=== PATIENT | male | born 1950 | race Caucasian/White ===

== ENCOUNTER 2020-01-22 05:20 | Emergency (ER) | payer OTHER, SELFPAY ==
[2020-01-22 05:22] VITALS: BP 174/90; PULSE 88; RESP 17; TEMP 36.1; O2SAT 100
--- NOTE | 2020-01-22 05:33 | ECG_ITS ---
Measurements Intervals [place] Rate: 84 P: 66 OK: 183 QRS: -5 QRSD: 145 T: 85 QT: 377 QTc: 448 Interpretive Statements SINUS RHYTHM LEFT BUNDLE BRANCH BLOCK ABNORMAL ECG Electronically Signed On 01-22-2020 6:50:54 CDT by Hernesto Oswald D.O.
[2020-01-22 05:58] LABS: Basophils Percent Auto 0.5 % (0.2-1.2); Eosinophils Absolute Auto 0.1 K/mm3 (0-0.3); Eosinophils Percent Auto 2.5 % (0-4.4); Hematocrit 42.7 % (42.0-52.0); Hemoglobin 14.9 g/dL (14.0-18.0); Immature Granulocyte Absolute 0.03 K/mm3 (0.00-0.031); Immature Granulocyte Percent A 0.5 % (0-0.5); Lymphocytes Absolute Auto 1.84 K/mm3 (0.9-3.2); Lymphocytes Percent Auto 32.6 % (18.3-44.2); Mean Corpuscular HGB Conc 34.9 g/dl (32-36); Mean Corpuscular Volume 85.9 fl (80-100); Mean Platelet Volume 8.4 fl (7.4-10.4); Monocytes Absolute Auto 0.4 K/mm3 (0.1-0.6); Monocytes Percent Auto 7.6 % (2.6-8.5); Neutrophils Absolute Auto 3.2 K/mm3 (1.3-6.7); Neutrophils Percent Auto 56.3 % (45.5-73.1); Platelet Count Result 139 k/mm3 (150-375); Red Blood Count 4.97 M/mm3 (4.6-6.20); Red Cell Distribution Width 12.4 % (11.5-14.5); White Blood Count 5.7 K/mm3 (4.5-10.0)
[2020-01-22 06:00] VITALS: BP 172/85; PULSE 81; RESP 18; O2SAT 100
[2020-01-22 06:07] LABS: Prothrombin Time 12.5 Seconds (11.1-14.7)
[2020-01-22 06:08] LABS: Partial Thromboplastin Time 30.6 SECONDS (22.3-36.8)
--- NOTE | 2020-01-22 06:08 | ED.ARRPALP ---
HPI - Arrhythmia/Palpitations General Chief Complaint: Arrhythmia/Palpitations Stated Complaint: Rapid heart beat Time Seen by Provider: 01/22/20 05:32 History of Present Illness HPI narrative: Patient is a 69-year-old male who presents ER with elevated blood pressures and concerns of palpitations. Patient was found to have elevated blood pressures on a physical exam couple weeks ago. Systolic blood pressure was running in the 150s. He has been going through a lot of stress at home as his is sick and he also has a stressful job. He has been trying to manage best he can but reports things have been more tense recently. He has been attempting meditation to control his blood pressure which he thinks is helpful. Over the last couple days however he has been feeling his heart beat harder and is concerned this may represent something more serious. He is not having chest pain or pressure. He is not short of breath with exertion. He has not been on any medication outside of his lisinopril 20 mg a has been taking for years in terms of blood pressure management. Related Data Home Medications Medication Instructions Recorded Confirmed ipratropium bromide 0.03 % nasal 2 spray NASAL TID 04/01/19 spray sildenafil (pulm.hypertension) 20 20 mg PO TID 04/01/19 mg tablet cholecalciferol (vitamin D3) 125 125 mcg PO DAILY 12/31/19 mcg (5,000 unit) capsule cyanocobalamin (B12)-cobamamide lozenge SUBLINGUAL 12/31/19 5,000 mcg-100 mcg sublingual lozenge famotidine 20 mg tablet 20 mg PO BID tablet 12/31/19 jkqviyeswzxx-umqqnadu-tkvzbu 1 tablet PO DAILY 12/31/19 omega-3 fatty acids 1,000 mg 1,000 mg PO DAILY 12/31/19 capsule Allergies Allergy/AdvReac Type Severity Reaction Status Date / Time codeine Allergy Intermediate Unknown Verified 12/31/19 08:43 prochlorperazine Allergy Intermediate Unknown Verified 12/31/19 08:43 diclofenac [From Voltaren] AdvReac Intermediate stomach Verified 12/31/19 08:43 upset Review of Systems Review of Systems: All systems reviewed & are unremarkable except as noted in HPI and below Cardiovascular: Cardiovascular: Denies chest pain, Reports rapid heart rate and Denies radiating jaw, neck or arm pain Gastrointestinal: Gastrointestinal: Denies abdominal pain, Denies nausea and Denies vomiting Neurologic: Denies dizziness PMFSH Social History Social History Smoking status: Never smoker Second hand tobacco smoke exposure: No Alcohol intake: current Exam Narrative: Exam Narrative: GENERAL: Well-appearing, well-nourished, and in no acute distress. HEAD: Normocephalic, atraumatic. CHEST: Clear to auscultation. No respiratory distress. HEART: Regular rate and rhythm. No murmur heard. Normal peripheral pulses. ABDOMEN: Soft, nontender, nondistended. EXTREMITIES: Normal range of motion. No edema. SKIN: Warm, dry, no rash. NEURO: Alert and oriented x3. PSYCH: Normal mood and affect. Course Course Emergency Course: Unremarkable evaluation. Blood pressure 169/82. This trended down but still elevated. Will start on Norvasc and give him his first dose here. Recommend follow-up with his PCP. I think there is a combination of just generalized hypertension as well as stress playing a role in his symptoms. Vital Signs Vital signs: Vital Signs Temperature 96.9 F L 01/22/20 05:22 Pulse Rate 88 01/22/20 05:22 Respiratory Rate 17 01/22/20 05:22 Blood Pressure 174/90 H 01/22/20 05:22 Pulse Oximetry 100 01/22/20 05:22 Temperature 96.9 F L 01/22/20 05:22 Pulse Rate 88 01/22/20 05:22 Respiratory Rate 17 01/22/20 05:22 Blood Pressure 174/90 H 01/22/20 05:22 Pulse Oximetry 100 01/22/20 05:22 MDM - Arrhythmia/Palpitations Lab Data Result diagrams: 01/22/20 05:38 01/22/20 05:38 Labs: Lab Results 01/22/20 01/22/20 01/22/20 Range/Units 05:38 05:38 0
[2020-01-22 06:09] LABS: Anion Gap 9 mmol/L (8-16); Blood Urea Nitrogen 16 mg/dL (9-20); Calcium 9.4 mg/dL (8.4-10.2); Carbon Dioxide 28 mmol/L (22-30); Chloride 102 mmol/L (98-107); Estimated CRCL calculation 48 ml/min; Estimated Glomerular Filt Rate 60; Glucose 100 mg/dL (75-110); Potassium 3.9 mmol/L (3.4-5.0); Sodium 139 mmol/L (137-145)
[2020-01-22 06:21] LABS: Troponin I < 0.012 ng/mL (0.000-0.034)
[2020-01-22] MEDS: amLODIPine BESYLATE 5 MG TABLET PO (06:44)
[2020-01-22 06:50] VITALS: BP 169/82; PULSE 82; RESP 15; O2SAT 99
== END 2020-01-22 06:50 | disposition home or self-care (01) ==
PROVIDERS: Emergency Provider Emergency Medicine; PCP Family Medicine
DX: I10 Essential (primary) hypertension (principal); I44.7 Left bundle-branch block, unspecified; K21.9 Gastro-esophageal reflux disease without esophagitis; E78.5 Hyperlipidemia, unspecified; E55.9 Vitamin D deficiency, unspecified
CPT/HCPCS: 36415; 80048; 84484; 85025; 85610; 85730; 93005; 99284; A9270

== ENCOUNTER 2020-07-28 08:21 | Outpatient (CLI) | payer OTHER, SELFPAY ==
--- NOTE | 2020-07-28 08:32 | ECHO_ITS ---
Patient Info Name: Richie Ruiz Age: 70 years : 1950 Gender: Male Ht: 67 in Wt: 143 lbs BSA: 1.75 m2 HR: 84 bpm BP: 159 / 82 mmHg Technical Quality: Good Exam Date: 07/28/2020 8:55 AM Exam Location: [facility] Patient Status: Outpatient Admit Date: 07/28/2020 Staff Ordering Physician: Kelli Hammond MD Coin Collector: Dora Tello RDCS Attending Provider: Kelli Hammond MD Referring Physician: Manish TEIXEIRA; Exam Type: CA echo doppler color flow Study Info Indications - murmur Complete two-dimentional, color flow and Doppler transthoracic echocardiogram is performed with agitated saline and with contrast to opacify the left ventricle and to improve the delineation of the left ventricle endocardial borders. Summary 1. Left ventricular chamber dimension is normal. 2. Left ventricular systolic function is normal, estimated at 60-65%. 3. The left ventricular diastolic function is grade I diastolic dysfunction. 4. E/e' 10 is mildly elevated. 5. Global longitudinal strain is normal at -19.9%. 6. Left atrial chamber dimension is moderately enlarged. 7. Right atrial chamber dimension is mildly enlarged. 8. There is mild aortic valve sclerosis. 9. The mitral valve has moderately calcified annulus. 10. There is mild tricuspid valve regurgitation. 11. No pulmonary hypertension, estimated pulmonary arterial systolic pressure is 27 mmHg. Left Ventricle E/e' 10 is mildly elevated. Global longitudinal strain is normal at -19.9%. Left ventricular chamber dimension is normal. Left ventricular systolic function is normal, estimated at 60-65%. The left ventricular diastolic function is grade I diastolic dysfunction. Right Ventricle Right ventricular chamber dimension is normal. Right ventricular systolic function is normal. Left Atria Left atrial chamber dimension is moderately enlarged. Right Atria Right atrial chamber dimension is mildly enlarged. Aortic Valve The aortic valve is trileaflet. There is mild aortic valve sclerosis. There is no aortic valve stenosis. There is no aortic valve regurgitation. Pulmonic Valve There is no pulmonic regurgitation. Mitral Valve The mitral valve has moderately calcified annulus. There is no mitral valve stenosis. There is no mitral valve regurgitation. Tricuspid Valve There is mild tricuspid valve regurgitation. No pulmonary hypertension, estimated pulmonary arterial systolic pressure is 27 mmHg. Pericardium/Pleural There is no pericardial effusion. Inferior Vena Cava Normal inferior vena cava with >50% collapse upon inspiration consistent with normal right atrial pressure, 5 mmHg. Aorta The aortic root size at the sinus of Valsalva is normal. Left Ventricular Outflow Tract Name Value Normal LVOT 2D LVOT Diameter 2.0 cm LVOT Doppler LVOT Peak Gradient 5 mmHg LVOT Mean Gradient 3 mmHg LVOT VTI 23 cm LVOT VTI/AV VTI Ratio 0.7 LVOT Stroke Volume 72 ml LVOT CO
== END 2020-07-28 08:22 | disposition home or self-care (01) ==
PROVIDERS: PCP Family Medicine; Visit Provider Family Medicine
DX: R01.1 Cardiac murmur, unspecified (principal); I36.1 Nonrheumatic tricuspid (valve) insufficiency; I35.0 Nonrheumatic aortic (valve) stenosis; I34.0 Nonrheumatic mitral (valve) insufficiency
CPT/HCPCS: 93306

== ENCOUNTER → 2022-01-01 07:43 | Outpatient (CLI) | payer OTHER, SELFPAY ==
--- NOTE | ~2022-01-01 | US_ITS ---
EXAMINATION: US renal BI DATE: 01/01/2022 08:21 INDICATION: Chronic kidney disease stage III TECHNIQUE: Multiple grayscale and Doppler ultrasound images of the kidneys were obtained. COMPARISON: None. FINDINGS: The right kidney measures 10.4 x 4.7 x 4.9 cm. Cysts of the right kidney measure up to 3.4 cm. The left kidney measures 10.7 x 6.1 x 4.8 cm. The kidneys demonstrate normal parenchymal echogeni city. There is no hydronephrosis. The bladder is normal. IMPRESSION: 1. Normal kidneys without hydronephrosis. Reviewed, dictated and finalized at location B.
== END ==
PROVIDERS: PCP Family Medicine; Visit Provider Family Medicine
DX: N18.30 Chronic kidney disease, stage 3 unspecified (principal)
CPT/HCPCS: 76775

== ENCOUNTER 2022-11-08 15:30 | Outpatient (CLI) | payer OTHER, SELFPAY ==
--- NOTE | 2022-11-08 15:54 | ECHO_ITS ---
Patient Info Name: Richie Ruiz Age: 72 years : 1950 Gender: Male Ht: 67 in Wt: 155 lbs BSA: 1.83 m2 HR: 73 bpm BP: 148 / 83 mmHg Heart Rhythm: Sinus Rhythm Technical Quality: Good Exam Date: 11/08/2022 4:09 PM Exam Location: [facility] Patient Status: Outpatient Admit Date: 11/08/2022 Staff Ordering Physician: Kelli Hammond MD Heel Builder: Aba Arroyo RDCS Attending Provider: Kelli Hammond MD Referring Physician: Manish TEIXEIRA; Exam Type: CA echo doppler color flow Study Info Indications - cardiac murmur unspecified Complete two-dimensional, color flow and Doppler transthoracic echocardiogram is performed. Summary 1. Complete two-dimensional, color flow and Doppler transthoracic echocardiogram is performed. 2. Left ventricular chamber dimension is normal. 3. Left ventricular systolic function is normal, estimated at 60-65%. 4. Left ventricular septal wall motion is abnormal with septal motion related to bundle branch block. 5. The left ventricular diastolic function is normal. 6. E/e' 9 is minimally elevated. 7. Left atrial chamber dimension is mildly enlarged. 8. The aortic valve is not well visualized. Cannot determine number of aortic valve leaflets. 9. There is moderate aortic valve sclerosis. 10. There is mild aortic valve stenosis with a peak velocity of 144 cm/s, mean gradient of 5 mmHg, and aortic valve area of 1.9 cm2. 11. There is trace aortic valve regurgitation. 12. The mitral valve has moderately calcified annulus. 13. No pulmonary hypertension, estimated pulmonary arterial systolic pressure is 8 mmHg. Left Ventricle E/e' 9 is minimally elevated. Left ventricular chamber dimension is normal. Left ventricular systolic function is normal, estimated at 60-65%. Left ventricular septal wall motion is abnormal with septal motion related to bundle branch block. The left ventricular diastolic function is normal. Right Ventricle Right ventricular systolic function is normal and with normal TAPSE 2.4 cm. Right ventricular chamber dimension is normal. Left Atria Left atrial chamber dimension is mildly enlarged. Right Atria Right atrial chamber dimension is normal. Aortic Valve The aortic valve is not well visualized. Cannot determine number of aortic valve leaflets. There is moderate aortic valve sclerosis. There is mild aortic valve stenosis with a peak velocity of 144 cm/s, mean gradient of 5 mmHg, and aortic valve area of 1.9 cm2. There is trace aortic valve regurgitation. Pulmonic Valve There is no pulmonic regurgitation. Mitral Valve The mitral valve has moderately calcified annulus. There is no mitral valve stenosis. There is no mitral valve regurgitation. Tricuspid Valve There is no tricuspid valve regurgitation. No pulmonary hypertension, estimated pulmonary arterial systolic pressure is 8 mmHg. Pericardium/Pleural There is no pericardial effusion. Inferior Vena Cava Normal inferior vena cava with >50% collapse upon inspiration consistent with normal right atrial pressure, 5 mmHg. Aorta The aortic root size at the sinus of Valsalva is normal. Left Ventricular Outflow Tract Name Value Normal LVOT 2D LVOT Diameter 2.1 cm LVOT Doppler LVOT Pe
== END 2022-11-08 15:31 | disposition home or self-care (01) ==
PROVIDERS: PCP Family Medicine; Visit Provider Family Medicine
DX: R01.1 Cardiac murmur, unspecified (principal); I08.0 Rheumatic disorders of both mitral and aortic valves
CPT/HCPCS: 93306

== ENCOUNTER 2022-11-27 11:53 | Outpatient (NON) | payer OTHER, SELFPAY | END 2022-11-27 11:54 | disposition home or self-care (01) | PROVIDERS: PCP Family Medicine; Visit Provider Nurse Practitioner | DX: C44.212 Basal cell carcinoma of skin of right ear and external auricular canal (principal) | CPT/HCPCS: 88305 ==

== ENCOUNTER 2023-02-18 14:39 | Outpatient (NON) | payer OTHER, SELFPAY | END 2023-02-18 14:40 | disposition home or self-care (01) | LOC: ANHLAB 14:39 | PROVIDERS: PCP Family Medicine; Visit Provider Nurse Practitioner | DX: C44.212 Basal cell carcinoma of skin of right ear and external auricular canal (principal) | CPT/HCPCS: 88305; 88331 ==

== ENCOUNTER 2024-10-02 10:26 | Outpatient (CLI) | payer OTHER, SELFPAY ==
--- NOTE | ~2024-10-02 | XR_ITS ---
Lumbosacral Spine: AP, oblique, and lateral views Clinical History: Pain Findings: The normal lordotic curve is maintained. No fracture or sublocation. There is moderate to a dvanced degenerative spurring at L5-S1. There is mild degenerative disc narrowing at L1-L2. There is moderate facet arthropathy at L4-L5 and L5-S1. The sacroiliac joints are normally outlined. Impression: [id number] degenerative spondylitic changes, as above. Reviewed, dictated and finalized at location M. Impression: [id number] degenerative spondylitic changes, as above.
--- OUTSIDE RECORDS SUMMARY | 2024-10-02 10:32 | XMS_ITS | Clinical Summary ---
Author Organization [facility] [employer] Address [address] [place] [address] Care Team Providers Care Director Foundation Name Role Phone Kelli Hammond MD Primary Care Provider [phone] Source Comments [facility] [facility],non-owned Affiliates and Associated Physician Practices is amultiple site organization consisting of ambulatory clinics and hospital sitesin [place], [place], [place] and [place]. This disclosure is being madepursuant to the Care Everywhere program and may not contain all information available regarding this patient. Last updated 18.[facility] Medications * Be aware that medications may not be up to date on this document. Alwaysverify current medications with the patient. lisinopril (PRINIVIL; ZESTRIL) 20 MG tablet 8 Active raNITIdine (ZANTAC) 300 MG tablet TK 1 T PO QD HS 6 7 Active VIAGRA 50 MG tablet 8 Active Lactobacillus (PROBIOTIC ACIDOPHILUS) CAPS Take 1 capsule by mouth once daily as needed 8 Active Cobalamine Combinations (B-12) 100-5000 MCG SUBL Dissolve 1 tablet under the tongue once daily 8 Active [place]-3 Fatty Acids (FISH OIL) 1000 MG capsule Take 1 capsule by mouth 2 times daily 8 Active vitamin D (CHOLECACIFEROL) 5000 UNITS capsule Take 1 capsule by mouth once daily 0 8 Active aspirin (ASPIRIN) 81 MG tablet Take 1 tablet by mouth once daily 30 tablet 6 8 Active mirtazapine (REMERON) 15 MG tablet TK 1 T PO Q DAY BEFORE BEDTIME 2 8 Active ezetimibe-simvast atin (VYTORIN) 10-20 MG tablet 9 Active Active Problems Problem Noted Date Diagnosed Date Vitamin D deficiency 05/11/2020 Gastroesophageal reflux disease without esophagi tis 08/06/2018 Annual physical exam- Executive physical program 06/19/2017 Basal cell carcinoma (BCC) of skin of nose 08/08 Left bundle branch block (LBBB) Immunizations Immunization Administration Dates Next Due INFLUENZA VACCINE 03/22/2017 INFLUENZA VACCINE, HIGH-DOSE , QUADR. (FLUZONE HIGH-DOSE QUADRIVALENT; 65Y+), 0.7 ML (HD-IIV4) 01/23/2018 INFLUENZA VACCINE, QUADR. (F LUZONE; FLULAVAL; FLUARIX; AFLURIA QUADRIVALENT; 6MO+), 0.5 ML (IIV4) 02/05/2019 PNEUMOCOCCAL PPSV23 04/01/2017 Pneumococcal Pcv13 Conj 03/22/2017,03/26/2016 Zoster Hzv Vacc Recombinant Inj Im 10/16/2019 Family History Medical History Relation Name Comments CAD (Coronary Artery Disease) Father aortic aneurysm Diabetes - Type 2 Maternal Grandmother CAD (Coronary Artery Disease) Mother smoker CVA Sister smoker Hypertension Sister Relation Name Status Comments Brother Alive Father (Age 81) bypass X2 Maternal Grandmother Mother (Age 81) s/p bypass at 75. Sister Alive smoker Social History Tobacco Use Types Packs/Day Years Used Date Smoking Tobacco: Never Alcohol Use Standard Drinks/Week Comments Yes 0 (1 standard drink = 0.6 oz pur e alcohol) rare AUDIT-C Answer Date Recorded Q1: How often do you have a drink containing alc ohol? 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 file Not on file Not on file Last Filed Vital Signs Vital Sign Reading Time Taken Comments Blood Pressure 128/82 05/25/2020 7:29 AM PUBLISHING EDITOR Pulse 93 05/25/2020 7:29 AM PUBLISHING EDITOR Temperature - - Respiratory Rate 12 05/25/2020 7:29 AM PUBLISHING EDITOR Oxygen Saturation 96% 05/25/2020 7:29 AM PUBLISHING EDITOR Inhaled Oxygen Concentration - - Weight 65.1 kg (143 lb 9.6 oz) 05/25/2020 7:29 AM PUBLISHING EDITOR Height 167.6 cm (5' 6) 05/25/2020 7:29 AM PUBLISHING EDITOR Body Mass Index 23.18 05/25/2020 7:29 AM PUBLISHING EDITOR Plan of Treatment Health Maintenance Due Date Last Done Comments COLOGUARD (AGES 45-75) - COLON CA SCREENING [address] COLONOGRAPHY - COLON CA SCREENING 1950 FIT - COLON CA SCREENING 1950 FLEX SIG - COLON CA SCREENING 1950 HEPATITIS C SCREENING 03/04/1968 DTAP/TDAP/TD VACCINES (1 - Tdap) 1969 ZOSTER VACCINE (2 of 2) 12/11/2019 10/16/2019 PROSTATE CA SCREENING 05/18/2021 05/18/2020, 018 COVID-19 VACCINE (1 - 2023-2 5 season) 2023 DEPRESSION SCREENING 04/22/2024 INFLUENZA VACCINE (Season Ended) 2024 02/05/2019, 01/23/2018, 03/22/2017 Respiratory Syncytial Virus (RSV) Vaccine Pt: or over 60 yrs (1 - 1-dose 75+ series) 2025 COLONOSCOPY - COLON CA SCREENING 11/21/2027 11/20/2017 (Done Outside Per Patient), 04/22/2012 Colorectal Cancer Screening 11/21/2027 PNEUMOCOCCAL VACCINE 50+ Completed 017, 03/22/2017, 03/26/2016 HEPATITIS B VACCINE Aged Out No longe r eligible based on patient's age to complete this topic HIB VACCINE Aged Out No longer eligi ble based on patient's age to complete this topic HPV VACCINE Aged Out No longer eligi ble based on patient's age to complete this topic MENINGOCOCCAL (Group B) VACCINE SHARED DECISION-MAKING Aged Out No longer eligible based on patient's age to complete this topic MENINGOCOCCAL GROUPS A/C/Y/W VACCINE Aged Out No longer eligible based on patient's age to complete this topic Procedures Procedure Name Priority Date/Time Associated Diagnosis Comments PROSTATE SPECIFIC ANTIGEN SCREEN Routine 05/18/2020 2:05 PM PUBLISHING EDITOR Annual physical exam- Executive physical program from Last 3 Months or Most Recently Relevant to Health Maintenance Results * PROSTATE SPECIFIC ANTIGEN SCREEN (05/18/2020 2:05 PM PUBLISHING EDITOR) PSA 2.1 0.0 - 4.0 ng/mL [facility] ACCOUNT BILL Comment: Paige ECLIA methodology. . According to the [place] [employer], Serum PSA should decrease and remain at undetectable levels after radical prostatectomy. The AUA defines biochemical recurrence as an initial PSA value 0.2 ng/mL or greater followed by a subsequent confirmatory PSA value 0.2 ng/mL or greater. Values obtained with different assay methods or kits cannot be used interchangeably. Results cannot be interpreted as absolute evidence of the presence or absence of malignant disease. FASTING Blood BLOOD SPECIMEN / Unknown 05/18/2020 2:05 PM PUBLISHING EDITOR 05/18/2020 Narrative Resulting Agency Comment Lab Testing performed at: [facility] [place] [address] [id number] Sergey Peguero MD LAB - CHEMISTRY ORDERABLES Fi nal Result [facility] ACCOUNT BILL [address] [place] [address] from Last 3 Months or Most Recently Relevant to Health Maintenance Insurance [facility] [place] [place] [id number] Care Teams Director Foundation Relationship Specialty Start Date End Date Kelli Hammond MD [address] [place] [address] PCP - General Family Medicine 06/19/17
--- OUTSIDE RECORDS SUMMARY | 2024-10-02 10:32 | XMS_ITS | Clinical Summary ---
Author Organization [facility] Address [address] [place] [address] Phone Care Team Providers Care Assistant Corporate Controller Name Role Phone Kelli Hammond MD Primary Care Provider [phone] Allergies Active Allergy Reactions Criticality Noted Date Comments Adhesive Codeine Ibuprofen Stomach upset Low 02/03/1982 Prochlorperazine Dizziness Low 01/24/2023 Medications cyanocobalamin-sara mamide (B-12 PLUS) 5,000-100 mcg tablet, sublingual Place 1 tablet under the tongue. 8 Active lisinopril (PRINIVIL,ZESTRIL) 20 mg tablet 8 Active cholecalciferol (VITAMIN D-3) 5,000 unit capsule Take 1 capsule (5,000 Units total) by mouth 8 Active omega-3 fatty acids (LOVAZA) 1 gram capsule Take 1 capsule (1,000 mg total) by mouth 8 Active ezetimibe-simvastat in (VYTORIN) 10-20 mg per tablet 9 Active cyanocobalamin/foli c acid (vitamin M04-nfwle acid) 1,000-[address] 1 tablet under the tongue daily 8 Active amLODIPine (NORVASC) 2.5 mg tablet Take 1 tablet (2.5 mg total) by mouth daily Active trazodone HCl (TRAZODONE ORAL) Take 100 mg by mouth daily 2 Active lansoprazole (PREVACID SOLUTAB) 15 mg disintegrating tablet Take 1 tablet (15 mg total) by mouth daily Active ALPRAZolam (Xanax) 0.25 mg tablet Take 1 tablet (0.25 mg total) by mouth nightly as needed 3 Active Active Problems Problem Noted Date Diagnosed Date Nonrheumatic aortic (valve) stenosis 01/24/2023 Gastroesophageal reflux disease without esophagi tis 08/06/2018 Annual physical exam 06/19/2017 Basal cell carcinoma (BCC) of skin of nose 08/08 Immunizations Immunization Administration Dates Next Due Influenza, Quadrivalent, Spl it, Preservative Free, Intramuscular 02/05/2019 Influenza, Trivalent, High D ose, Split, Preservative Free, Intramuscular 01/23/2018 Influenza, Unspecified 03/22/2017 Pneumococcal Conjugate PCV 13 03/22/2017, 016 Pneumococcal Polysaccharide PPV23 04/01/2017 Surgical History Surgery Date Site/Laterality Comments STERILIZATION Surgery Of Male Genitalia Sterilization - 2003 (Added by TW Conv) Medical History Medical History Date Comments Personal history of other en docrine, nutritional and metabolic disease History of hyperlipi demia - (Added by TW Conv) Family History Medical History Relation Name Comments Basal cell carcinoma Mother Family history of basal cell carcinoma - (Added by TW Conv) Relation Name Status Comments Mother Social History Tobacco Use Types Packs/Day Years Used Date Smoking Tobacco: Never Sex and Gender Information Value Date Recorded Sex Assigned at Not on file Legal 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 Gender Identity Male 02/24/2021 9:40 AM CDT Sexual Orientation Straight 02/24/2021 9: 40 AM CDT Obstetrics History Last Filed Vital Signs Vital Sign Reading Time Taken Comments Blood Pressure 162/82 01/24/2024 10:21 AM CDT Pulse 64 01/24/2024 10:21 AM CDT Temperature - - Respiratory Rate - - Oxygen Saturation 99% 01/24/2024 10:21 AM CDT Inhaled Oxygen Concentration - - Weight 73.1 kg (161 lb 1.6 oz) 01/24/2024 10:21 AM CDT Height 170.2 cm (5' 7) 01/24/2024 10:21 AM CDT Body Mass Index 25.23 01/24/2024 10:21 AM CDT Plan of Treatment Health Maintenance Due Date Last Done Comments Colon Cancer Screening-Colonoscopy 1950 Depression Screening 1950 Fall Risk Assessment 1950 Hepatitis C Screening 1950 DTaP/Tdap/Td Vaccine (1 - Tdap) 1961 Hepatitis B Screening 1968 Well Visit 65+ 2015 Covid-19 Vaccine (4 - 2023-2 5 season) 2023 02/11/2021, 07/01/2020, 06/03/2020 Influenza Vaccine (Season Ended) 2024 01/23/2021, 02/05/2019, 01/23/2018, Additional history exists Pneumococcal vaccine 65+ Completed 017, 03/22/2017, 03/26/2016 Zoster Vaccine Completed 10/16/2019, 05/18/2019 Insurance Care Teams Assistant Corporate Controller Relationship Specialty Start Date End Date Kelli Hammond MD PCP - General Family Medicine 04/02/18
--- OUTSIDE RECORDS SUMMARY | 2024-10-02 10:32 | XMS_ITS | Referral Summary ---
Author Organization [facility] Address [address] [place] [address] Phone Care Team Providers Care Internet Designer Name Role Phone Kelli Hammond MD Primary Care Provider Allergies Active Allergy Reactions Criticality Noted Date [...] tablet 9 Active cyanocobalamin/foli c acid (vitamin T12-ywxiv acid) 1,000-[address] 1 tablet [...] 13 03/22/2017, 016 Pneumococcal Polysaccharide PPV23 04/01/2017 Social History Tobacco Use Types Packs/Day Years Used Date Smoking Tobacco: Never Sex and Gender Information Value Date Recorded Sex Assigned at Not on file Legal 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
== END 2024-10-02 10:27 | disposition home or self-care (01) ==
LOC: ANHIMG 10:27
PROVIDERS: PCP Family Medicine; Visit Provider Family Medicine
DX: M47.896 Other spondylosis, lumbar region (principal)
CPT/HCPCS: 72110

== ENCOUNTER 2025-04-05 14:51 | Emergency (ER) | payer OTHER, SELFPAY ==
[2025-04-05 15:00] VITALS: BP 142/79; PULSE 106; RESP 16; TEMP 38.3; O2SAT 96
[2025-04-05] MEDS: ONDANSETRON HCL ODT 4 MG TABLET SUBLINGUAL (15:24)
[2025-04-05 16:02] LABS: EDCOVIDSCREEN Negative (Negative); EDINFLUASCREEN Positive (Negative); EDINFLUBSCREEN Negative (Negative)
--- NOTE | 2025-04-05 17:45 | ED_ITS ---
HPI - URI/Sore Throat General Chief Complaint: Upper Respiratory Infection Stated Complaint: Cough Time Seen by Provider: 04/05/25 15:16 Source: patient and RN notes reviewed Mode of arrival: ambulatory Limitations: no limitations History of Present Illness HPI Narrative: 75-year-old male patient presents today complaining of fever, body aches, chills, nasal congestion, cough, decreased appetite, vomiting. Symptoms began yesterday and patient vomited approximately 10 times yesterday. He has tried a decongestant and Tylenol with some improvement in symptoms. He received a flu shot this season. Upon exam, patient was vomiting in the sink. Related Data Home Medications ?Medication ?Instructions ?Recorded ?Confirmed ?Last Taken ?Type cholecalciferol (vitamin D3) 125 125 mcg PO DAILY 12/2104/05/25 Unknown History mcg (5,000 unit) capsule cyanocobalamin (B12)-cobamamide lozenge sublingual 02/0809/11/24 Unknown History 5,000 mcg-100 mcg sublingual lozenge (B12) kbgvrdhhmdwy-xjoqihgk-ebowfl 1 tablet PO DAILY 0 04/05/25 Unknown History tablet (Multivitamin 50 Plus tablet) omega-3 fatty acids 1,000 mg 1,000 mg PO DAILY 0 04/05/25 Unknown History capsule (Fish Oil Concentrate) Allergies Allergy/AdvReac Type Severity Reaction Status Date / Time codeine Allergy Intermediate Unknown Verified 04/05/25 14:58 prochlorperazine Allergy Intermediate Unknown Verified 04/05/25 14:58 diclofenac (From Voltaren) AdvReac Intermediate stomach Verified 04/05/25 14:58 upset PMFSH Past Medical History Medical History Aortic stenosis Chronic renal insufficiency, stage III (moderate) History of Mohs micrographic surgery for skin cancer Erectile dysfunction Essential (primary) hypertension Gastroesophageal reflux disease without esophagitis Hyperlipidemia, unspecified Non-seasonal allergic rhinitis Pre-diabetes Vitamin D deficiency Family History Family History Sibling Hypertension Father Family history of coronary artery disease Other Family history of congestive heart failure Social History Social History (Reviewed 04/05/25 @ 17:46 by Karli Jarrett, UTILITY BILL COLLECTOR, [employer]PRESENTATIVE) Smoking status: Never smoker Second hand tobacco smoke exposure: No Alcohol intake: current Substance use: never Substance use type: does not use Lack of Transportation: No Lack of Food: Never True Current Housing: I Have Housing Concerned About Future Housing: No Difficulty Paying Gas/Electric Bills: No Difficulty Paying for Meds: No Currently Unemployed: No Education: Master's Degree or Higher Difficulty w/ Childcare or Family Care: No Living arrangements: with family Gender identity (if verbalized by the patient): Male Sexual Orientation (if Verbalized by the Patient): Straight or Heterosexual Spiritual care concerns: No Agree to blood products: Yes Comments At time of signature, I have reviewed and agree with nursing past medical, surgical, social and family history unless otherwise noted. Please see nursing chart for further information. There is no relevant family history pertinent to the presenting complaint Exam Narrative: GENERAL: Mildly ill-appearing, well-nourished, and in no acute distress. HEAD: Normocephalic, atraumatic. EYES: EOMI. No redness or drainage. Conjunctivae normal. ENT: Mucous membranes pink and moist. Nares clear. No rhinorrhea. TMs normal bilaterally. Throat normal. Uvula midline. NECK: Normal AROM. Supple. No lymphadenopathy. CHEST: No respiratory distress. Clear to auscultation. HEART: Regular rate and rhythm. No murmur appreciated. Normal peripheral pulses. ABDOMEN: Soft, nontender, nondistended, normal active bowel sounds. EXTREMITIES: Normal range of motion. No edema. SKIN: Warm, dry, no rash. Capillary refill normal. Normal skin turgor. NEURO: No focal deficits. Alert and oriented x3. Gait steady. PSYCH: Normal affect. No signs of depression or anxiety. Course Course Level of Care: Express Care Visit Vital Signs Vital signs: Vital Signs Temperature 100.9 F H 04/05/25 15:00 Pulse Rate 106 H 04/05/25 15:00 Respiratory Rate 16 04/05/25 15:00 Blood Pressure 142/79 H 04/05/25 15:00 Pulse Oximetry 96 04/05/25 15:00 Temperature 100.9 F H 04/05/25 15:00 Pulse Rate 106 H 04/05/25 15:00 Respiratory Rate 16 04/05/25 15:00 Blood Pressure 142/79 H 04/05/25 15:00 Pulse Oximetry 96 04/05/25 15:00 Reviewed [facility] Narrative Medical decision making narrative: 75-year-old male patient presents today complaining of fever, body aches, chills, nasal congestion, cough, decreased appetite, vomiting. Symptoms began yesterday and patient vomited approximately 10 times yesterday. He has tried a decongestant and Tylenol with some improvement in symptoms. He received a flu shot this season. Upon exam, patient was vomiting in the sink. Upon exam, patient is mildly ill appearing. Mucous membranes pink and moist. Remainder of exam is normal. Improvement in vomiting symptoms after dose of Zof ran. Influenza a positive. Influenza B and COVID-19 negative. Patient declines prescription for Tamiflu due to nausea side effect. Zofran prescription sent to pharmacy. Patient mildly tachycardic, likely due to fever. Patient agrees with plan to stay with fluids today and advance as tolerated slowly. Anticipatory guidance given. ED precautions given. Differential Diagnosis Differential Diagnosis: COVID-19, influenza, dehydration, URI, viral syndrome Lab Data [facility] Lab Attestation statement: I personally reviewed the patient's lab results. Labs: Lab Results 04/05/25 Range/Units 15:07 POC Influenza A Ag Positive (Negative) POC Influenza B Ag Negative (Negative) POC SARS CoV-2 Ag Negative (Negative) Critical Care Time Critical Care Time Critical Care Time: No Discharge Plan Discharge Clinical Impression: Influenza A Patient Disposition: Home Condition: Stable Instructions: Influenza (DC) Additional Instructions: You have tested positive for influenza A. Please take the Zofran for your nausea and vomiting. Rest and stay hydrated with water and electrolyte containing fluids. You may take fezy-zxk-snkahuz medication for your symptoms if needed. Follow-up with your PCP in 1 week if symptoms are not improving. Go to the ER immediately if symptoms worsen or you are feeling dehydrated. Patient Language: Kazakh Prescriptions: New ondansetron 4 mg tablet,disintegrating 4 mg PO TID PRN (Reason: nausea and vomiting) Qty: 15 0RF No Action B12 5,000-100 mcg lozenge SUBLINGUAL cholecalciferol (vitamin D3) 125 mcg (5,000 unit) capsule 125 mcg PO DAILY Multivitamin 50 Plus Tablet 1 tablet PO DAILY omega-3 fatty acids [Fish Oil Concentrate] 1,000 mg capsule 1,000 mg PO DAILY ipratropium bromide 21 mcg (0.03 %) spray,non-aerosol 2 spray NASAL TID Qty: 30 6RF alprazolam 0.25 mg tablet 0.25 mg PO BID PRN (Reason: stress) Qty: 30 0RF cyclobenzaprine 10 mg tablet 10 mg PO TID PRN (Reason: muscle spasm) Qty: 60 0RF doxepin 10 mg capsule 10 mg PO QHS Qty: 30 6RF lansoprazole [Prevacid 24Hr] 15 mg capsule,delayed release(DR/EC) 15 mg PO DAILY Qty: 90 1RF lisinopril 30 mg tablet See Rx Instructions .ROUTE .COMPLEX Qty: 90 0RF Dose Instruction: TAKE 1 TABLET BY MOUTH DAILY Rx Instructions: TAKE 1 TABLET BY MOUTH DAILY amlodipine 2.5 mg tablet 2.5 mg PO DAILY Qty: 90 1RF ezetimibe-simvastatin 10-20 mg tablet See Rx Instructions .ROUTE .COMPLEX Qty: 90 0RF Dose Instruction: TAKE 1 TABLET BY MOUTH DAILY Rx Instructions: TAKE 1 TABLET BY MOUTH DAILY Follow-up/Referrals: Manish,MD Kelli [Primary Care Provider, Family Practice] Time of Disposition: 15:42
== END 2025-04-05 15:45 | disposition home or self-care (01) ==
PROVIDERS: Emergency Provider Nurse Practitioner; PCP Family Medicine
DX: J10.1 Influenza due to other identified influenza virus with other respiratory manifestations (principal); Z20.822 Contact with and (suspected) exposure to COVID-19; I12.9 Hypertensive chronic kidney disease with stage 1 through stage 4 chronic kidney disease, or unspecified chronic kidney disease; N18.30 Chronic kidney disease, stage 3 unspecified; I35.0 Nonrheumatic aortic (valve) stenosis; E78.5 Hyperlipidemia, unspecified; R73.03 Prediabetes; Z85.828 Personal history of other malignant neoplasm of skin
CPT/HCPCS: 87426; 87804; 99213; A9270; G0463